=== PATIENT | female | born 1985 | race African-American/Black ===

== ENCOUNTER 2016-04-28 12:45 | Emergency (ER) | payer BC ==
[2016-04-28] MEDS ORDERED: ASPIRIN 81 MG CHEW TAB ONE (13:08)
[2016-04-28] MEDS ORDERED: SODIUM CHLORIDE 0.9% 1,000 ML ONE (14:38)
== END 2016-04-28 16:34 | disposition home or self-care (01) ==
LOC: ER 12:45
DX: R07.9 Chest pain, unspecified (principal); Z79.899 Other long term (current) drug therapy
CPT/HCPCS: 36415; 71010; 80053; 82550; 83735; 84439; 84443; 84484; 84703; 85025; 85379; 85610; 85730; 93005; 96360